=== PATIENT | male | born 1990 | race Two or more races ===

== ENCOUNTER 2020-07-07 10:04 | Emergency (ER) | payer SELFPAY | END 2020-07-07 11:24 | disposition left against medical advice (07) | PROVIDERS: Emergency Provider Emergency Medicine | DX: M79.602 Pain in left arm (principal) ==

== ENCOUNTER 2021-07-13 22:47 | Emergency (ER) | payer BC, SELFPAY ==
[2021-07-13 22:59] VITALS: BP 148/87; PULSE 90; RESP 18; TEMP 37.5; O2SAT 99; BMI 23.8
[2021-07-13 23:28] LABS: COVID-19 Test Positive (Negative); IDNOW Serial# 9DD0AD1C
--- NOTE | 2021-07-14 00:05 | ED_ITS ---
HPI - Nausea/Vomiting/Diarrhea General Chief complaint: Nausea/Vomiting/Diarrhea Stated complaint: Chills/Vomiting Time Seen by Provider: 07/14/21 00:05 Source: patient Mode of arrival: ambulatory Limitations: no limitations History of Present Illness HPI Narrative: Patient is a 30 year old male presenting to the emergency department today with nausea and feeling generally unwell. Patient states that for the last few days, he has felt generally unwell and very nauseous. Patient states that his son, who lives with him, is COVID-19 positive. Patient denies any dizziness, lightheadedness, abdominal pain, fever, chills, blurry vision, double vision, loss of vision, chest pain, difficulty breathing, shortness of breath, back pain, night sweats, pain with urination, increased urinary frequency, increased urinary urgency, blood in his urine or stool, syncope or a near syncopal episode, recent trauma or falls, bowel incontinence, bladder incontinence, bowel retention, bladder retention, or any other complaints at this time. MD elicited complaint: nausea Onset (ago): day(s) Associated nausea: Yes Associated abdominal pain: No Location of pain: none Related Data Previous Rx's Medication Instructions Recorded ondansetron 4 mg disintegrating 4 mg PO Q8H 3 Days #9 tab 07/14/21 tablet Allergies Allergy/AdvReac Type Severity Reaction Status Date / Time Penicillins [PENICILLINS] Allergy Unknown RASH Unverified 03/09/20 19:12 Review of Systems Constitutional: Constitutional: Reports no additional constitutional complaints, Reports body ache(s), Denies chills, Denies fever(s) and Denies night sweats Eyes: Eyes: Reports no additional eye complaints, Denies blurry vision, Denies change in vision, Denies diplopia, Denies eye discharge, Denies loss of vision and Denies eye pain ENT: Denies dizziness Cardiovascular: Cardiovascular: Reports no additional cardiovascular complaints, Denies chest pain, Denies lightheadedness, Denies Loss of Consciousness and Denies dyspnea Respiratory: Respiratory: Reports no additional respiratory complaints and Denies dyspnea Gastrointestinal: Gastrointestinal: Reports nausea Genitourinary: Genitourinary: Reports no additional male genitourinary complaints, Denies hematuria, Denies oliguria, Denies difficulty urinating, Denies dysuria, Denies urinary frequency, Denies urinary hesitancy, Denies urinary incontinence and Denies urinary urgency Musculoskeletal: Musculoskeletal: Reports no additional musculoskeletal complaints, Denies numbness and Denies tingling Neurologic: Denies dizziness, Denies loss of vision, Denies numbness and Denies tingling Psychiatric: Psychiatric: Reports no additional psychiatric complaints Endocrine: Endocrine: Reports no additional endocrine complaints Hematologic/Lymphatic: Hematologic/Lymphatic: Reports no additional hematologic/lymphatic complaints Allergic/Immunologic: Allergic/Immunologic: Reports no additional allergic/immunologic complaints [facility] Past Medical History Attestation statement: The following information was validated with the patient. Social History Social History Advance Directives: No Physical Exam Vital Signs: Vital Signs: Last Vital Signs Temp 99.5 F 07/14/21 00:39 Pulse 77 07/14/21 00:39 Resp 16 07/14/21 00:39 BP 120/80 07/14/21 00:39 Pulse Ox 99 07/14/21 00:39 BMI result Body Mass Index 23.8 Resp: Effort & Inspection: normal respiratory effort Auscultation: clear to auscultation bilaterally Cardio: Jugular venous distension: no JVD Rate: regular rate Rhythm: regular rhythm GI: Palpation (GI): Soft to palpation, not firm and nontender MDM - Nausea/Vomiting/Diarrhea MDM Narrative Medical decision making narrative: Patient is a 30 year old male presenting to the emergency department today with nausea and feeling generally unwell. Patient's physical exam was unremarkable. Patient's rapid COVID-19 test was positive. I explained my physical exam findings as well as all test results to the patient. I answered all questions asked by the patient. Patient received IM Toradol and ODT Zofran which he stated helped his symptoms significantly. I stressed the importance of the patient taking his medication as prescribed. I stressed the importance of the patient following up with his primary care provider. I stressed the importance of the patient following all COVID-19 isolation and quarantine guidelines as set by the CDC. I stressed the importance of the patient returning to the emergency department immediately if his symptoms were to worsen or if he were to develop any dizziness, shortness of breath, difficulty breathing, chest pain, blurry vision, loss of vision, nausea, vomiting, abdominal pain, fever, chills, back pa in, or any other complaints. Patient verbalized agreement and understanding with this treatment plan and discharge.. Differential Diagnosis Differential diagnosis: Likely gastroenteritis (COVID-19, general illness) Medical Records Attestation: I reviewed the patient's medical records. Lab Data Attestation: I reviewed the patient's lab results. Labs: Lab Results 07/13/21 Range/Units 23:15 COVID-19 (JUDY) Positive A (Negative) COVID-19 Clin Com See Note Discharge Plan Discharge Clinical Impression: COVID-19 Patient Disposition: Home, Self-Care Instructions: COVID-19 (Coronavirus Disease 2019) (ED) Additional Instructions: Call to discuss finding and establishing with a primary care provider. Prescriptions: New ondansetron 4 mg tablet,disintegrating 4 mg PO Q8H 3 Days Qty: 9 RF: 0 Print Language: [place]
[2021-07-14 00:39] VITALS: BP 120/80; PULSE 77; RESP 16; TEMP 37.5; O2SAT 99
[2021-07-14] MEDS: Ondansetron ODT 4 MG TAB.RAPDIS TRANSLINGU (00:56)
[2021-07-14] MEDS: Ketorolac Tromethamine 30 MG/ML VIAL IM (00:56)
== END 2021-07-14 00:58 | disposition home or self-care (01) ==
PROVIDERS: Emergency Provider Internal Medicine
DX: U07.1 COVID-19 (principal); R11.0 Nausea
CPT/HCPCS: 87635; 96372; 99283; 99284; J1885

== ENCOUNTER 2023-01-24 12:19 | Emergency (ER) | payer OTHER, BC, SELFPAY ==
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
[2023-01-24 12:22] VITALS: BP 168/80; PULSE 93; O2SAT 96
[2023-01-24 12:45] VITALS: BP 131/82; PULSE 96; RESP 18; TEMP 36.8; O2SAT 96; BMI 23.0
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
== END 2023-01-24 15:43 | disposition home or self-care (01) ==
PROVIDERS: Emergency Provider Emergency Medicine
DX: S06.0X0A Concussion without loss of consciousness, initial encounter (principal); S16.1XXA Strain of muscle, fascia and tendon at neck level, initial encounter; S00.33XA Contusion of nose, initial encounter; V47.5XXA Car driver injured in collision with fixed or stationary object in traffic accident, initial encounter; Y93.89 Activity, other specified; Y92.415 Exit ramp or entrance ramp of street or highway as the place of occurrence of the external cause; Y99.9 Unspecified external cause status
CPT/HCPCS: 70450; 70486; 72125; 99282; 99284

== ENCOUNTER 2023-12-07 19:56 | Emergency (ER) | payer SELFPAY ==
--- NOTE | ~2023-12-07 | XR_ITS ---
EXAMINATION: XR ANKLE, LEFT XR FOOT, LEFT CLINICAL INFORMATION: World ankle. COMPARISON: None available. TECHNIQUE: AP, lateral, and mortise views of the left ankle. AP, lateral, and oblique views of the left foot. FINDINGS: Examination demonstrates significant soft tissue swelling over the lateral malleolus. No fracture or dislocation is directly visualized. Bony mineralization appears preserved. No lytic or sclerotic bony lesion is appreciated. The joint spaces appear maintained. No effusion is identified. XR/XR foot LT min 3V IMPRESSION: Findings as above.
--- NOTE | ~2023-12-07 | XR_ITS ---
EXAMINATION: XR ANKLE, LEFT XR FOOT, LEFT CLINICAL INFORMATION: World ankle. COMPARISON: None available. TECHNIQUE: AP, lateral, and mortise views of the left ankle. AP, lateral, and oblique views of the left foot. FINDINGS: Examination demonstrates significant soft tissue swelling over the lateral malleolus. No fracture or dislocation is directly visualized. Bony mineralization appears preserved. No lytic or sclerotic bony lesion is appreciated. The joint spaces appear maintained. No effusion is identified. XR/XR ankle LT min 3V IMPRESSION: Findings as above.
[2023-12-07 20:04] VITALS: BP 138/64; PULSE 91; RESP 20; TEMP 37.2; O2SAT 97; BMI 23.6
--- NOTE | 2023-12-07 20:05 | ED.LOWEXIN ---
HPI - Extremity Injury (Lower) General Chief Complaint: Extremity Injury, Lower Stated Complaint: left ankle injury today Time Seen by Provider: 12/07/23 20:11 Source: patient Mode of arrival: wheelchair Limitations: no limitations History of Present Illness ED Provider: Dr. Yoselin Ayala HPI Narrative: patient comes to the emergency room complaining of left-sided ankle pain. Patient states that he was playing basketball with his son today, patient jumped to grab the ball, when he landed, patient's left foot landed on his son foot and then sprain his ankle. Patient denies any other injuries. Patient states that he is unable to bear weight Related Data Previous Rx's ?Medication ?Instructions ?Recorded ondansetron 4 mg disintegrating 4 mg PO Q8H 3 days #9 tabs 07/14/21 tablet ibuprofen 600 mg tablet 600 mg PO TID #20 tabs 12/07/23 Allergies Allergy/AdvReac Type Severity Reaction Status Date / Time Penicillins [PENICILLINS] Allergy Unknown RASH Verified 12/07/23 20:06 Review of Systems Review of Systems: Constitutional : No Weight loss, No Fever, No Chills, No Night Sweats, No Fatigue, No Malaise ENT/Mouth : No Hearing loss, No Ear Pain, No Nasal Congestion, No Sinus Pain, No Hoarseness, No sore throat, No Rhinorrhea, No Swallowing Difficulty Eyes: No Eye Pain, No Swelling, No Redness, No Foreign Body, No Discharge, No Vision Changes Cardiovascular : No Chest Pain, No SOB, No Dyspnea on Exertion, No Orthopnea, No Edema, No Palpitations Respiratory : No Cough, No Sputum, No Wheezing, No Smoke Exposure, No Dyspnea Gastrointestinal : No Nausea, No Vomiting, No Diarrhea, No Constipation, No abdominal Pain, No Hematochezia, No Melena Genitourinary : no irregular bleeding, No Dysuria, No Urinary Frequency, No Hematuria, No Urinary Incontinence, No Urgency, No Flank Pain, No Urinary Flow Changes, No Hesitancy Musculoskeletal : complaining of left-sided ankle pain, No Myalgias, No Joint Swelling Skin : No Skin Lesions, No rash Neuro : No Weakness, No Numbness, No Paresthesias, No Loss of Consciousness, No Dizziness, No Headache Psych : No Anxiety/Panic, No Depression, No SI/HI/AH/VH, No Social Issues, Heme/Lymph: No Bruising, No Bleeding,No Lymphadenopathy Endocrine : No Polyuria, No Polydipsia, No Temperature Intolerance [facility] Social History Social History Advance Directives: No Advance Directives Information Provided: No Do you have a plan to hurt others: No Plan Physical Exam Vital Signs: Vital Signs: Last Vital Signs Temp 98.9 F 12/07/23 20:04 Pulse 91 12/07/23 20:04 Resp 20 12/07/23 20:04 BP 138/64 12/07/23 20:04 Pulse Ox 97 12/07/23 20:04 O2 Del Method Room Air 12/07/23 20:04 BMI result Body Mass Index 23.6 Const: Other: Appearance: Alert. Oriented X3. No acute distress. Eyes: Pupils equal, round and reactive to light. ENT: Pharynx normal. Neck: Normal inspection. Neck supple. No lymph nodes noted. No crepitus CVS: Normal heart rate and rhythm. Pulses normal. Normal S1 and S2 Respiratory: No respiratory distress. Breath sounds normal. No Wheezing. No rales Abdomen: Soft and nontender. No rigidity. No distention. Skin: Skin warm and dry. Normal skin color. Normal skin turgor. Extremities: No lower extremity edema. patient has mild swelling on the lateral malleolus of the left ankle. Mild ecchymosis, no pain to palpation over the metatarsals Neuro: Oriented X 3. No motor deficit. No sensory deficit. Moving all extremities. No slurred speech. CN 2 through 12 grossly intact Psych: calm, cooperative, normal affect Course Course Course Narrative: This is a Rapid Medical Examination (RME) performed by Juan Cook PA-C in triage. Full HPI, ROS, assessment and treatment plan per primary provider in the Main ED. 33 yo male here for eval of left ankle pain/ swelling sustained while playing basketball with his son MASSIMO. Reports jumping and rolling his ankle inward. Reports pain with ambulating/ bearing weight on left foot. denies numbness/tingling/weakness. on exam, noted swelling to left ankle. 2+dp pulse. presents in wheelchair. Plan: xrs Medications Administered Discontinued Medications Generic Name Dose Route Start Last Admin Trade Name Freq PRN Reason Stop Dose Admin Ibuprofen 600 mg 12/07/23 20:15 12/07/23 20:23 Ibuprofen 600 Mg Tablet PO 12/07/23 20:16 600 mg ONCE ONE Administration Medical Decision Making Medical Decision Making [facility] Narrative: - my interpretation of x-rays: Soft tissue swelling, normal alignment, no fracture or dislocation Differential Diagnosis Differential Diagnoses: The differential diagnosis associated with the presentation includes ( ankle contusion, sprain, fracture, dislocation) Independent Interpretation I performed an independent interpretation of an: Plain X-Ray Radiology Impression Discussion of test interpretation with radiology: I have reviewed the radiologist's reading. Radiologist Impression: Negative radiographs of the right ankle and foot. Discharge Plan Discharge Clinical Impression: Ankle sprain Patient Disposition: Home, Self-Care Instructions: Ankle Sprain (ED), R.I.C.E. Treatment (ED) Additional Instructions: Please follow-up with your primary care physician tomorrow. If you have any worsening or new symptoms, please return to the emergency room or call 911 Prescriptions: New ibuprofen 600 mg tablet 600 mg PO TID Qty: 20 0RF No Action ondansetron 4 mg tablet,disintegrating 4 mg PO Q8H 3 Days Qty: 9 0RF Stand Alone Forms: Work/School Release Print Language: Greenlandic
[2023-12-07] MEDS: Ibuprofen 600 MG TABLET PO (20:23)
[2023-12-07 21:23] VITALS: BP 132/76; PULSE 83; RESP 17; O2SAT 98
[2023-12-07 21:24] VITALS: BP 132/76; PULSE 83; RESP 17; TEMP 36.6; O2SAT 98
== END 2023-12-07 21:25 | disposition home or self-care (01) ==
PROVIDERS: Emergency Provider Emergency Medicine
DX: S93.402A Sprain of unspecified ligament of left ankle, initial encounter (principal); X50.1XXA Overexertion from prolonged static or awkward postures, initial encounter; Y93.67 Activity, basketball; Y92.9 Unspecified place or not applicable; Y99.9 Unspecified external cause status
CPT/HCPCS: 73610; 73630; 99283; 99284